=== PATIENT | male | born 1960 | race Caucasian/White ===

== ENCOUNTER 2017-02-13 23:04 | Emergency (ER) | payer OTHER ==
--- NOTE | ~2017-02-13 | CR126 ---
[facility]. [facility] A Service of [facility] & [facility] [place] RADIOLOGY TEXT RESULTS PATIENT: LAYTON GIORDANO LOCATION: SED : 64 UNIT #: [id number] AGE: [address]: Amber Mukherjee SEX: M ORDER DR: [id number] [address] [address] [id number] E MR#: [id number] Acc #: [id number] NAME: LAYTON GIORDANO : 1960 SEX: M STUDY DATE/TIME: 02/13/2017 22:58 UNIT: SED ROOM: STUDY DESCRIPTION: CR Foot Complete Min 3 View Lt Attending Physician: Amber Mukherjee Pa-C Ordering Physician: Amber Mukherjee Pa-C Primary Care Physician: Dior Lorenzo A.P.R.N. MEDICAL IMAGING REPORT This report is preliminary unless electronic signature is present. EXAM Left foot INDICATIONS Left foot pain since 7-8 weeks. Pain in second through fourth toes. FINDINGS 3 views of the left foot were obtained. There is a fracture involving the third proximal phalanx. There is minimally displaced. There is also a nondisplaced fracture through the mid-portion of the fourth proximal phalanx. IMPRESSION Fractures of the fourth and third proximal phalanges are noted. These fractures involving the portions of each bone and the 1 in the third digit is slightly displaced. Dictated by... Zander Dos Santos M.D. THIS IS AN ELECTRONICALLY VERIFIED REPORT Zander Dos Santos M.D. at 02/14/2017 1:59 AM FEL/pcl TD: 02/14/2017 00:21 JOB #: [id number] MEDICAL IMAGING REPORT Page 1 of 1
[~2017-02-13 23:04] MED LIST: ACULAR LS5 ML OD; ALBUTEROL17 GM INH; AUGMENTIN1 TAB.SR1 PO; ERYTHROMYCIN O3.5 GM OD; NO MEDICATIONS; PRILOSEC; PRINIVIL40 MG PO; [UNRECOGNIZED DRUG - REMARK]
== END 2017-02-14 00:07 | disposition home or self-care (01) ==
LOC: SED 23:04
DX: S92.512A Displaced fracture of proximal phalanx of left lesser toe(s), initial encounter for closed fracture (principal); F17.210 Nicotine dependence, cigarettes, uncomplicated; W22.8XXA Striking against or struck by other objects, initial encounter
CPT/HCPCS: 29405; 73630; 99283